=== PATIENT | male | born 1990 | race African-American/Black ===

== ENCOUNTER 2018-11-17 14:38 | Emergency (ER) | payer OTHER ==
[~2018-11-17] VITALS: Ht 190.5 cm; Wt 107.7 kg
[2018-11-17 14:49] VITALS: Ht 190.5 cm; Wt 107.7 kg
[2018-11-17 15:20] LABS: BASOPHILS 0.2 % (0-2); EOSINOPHILS 3.3 % (0-7); HEMATOCRIT 41.4 % (42.0-54.0); HEMOGLOBIN 13.7 g/dL (13.5-17.5); IMMATURE GRANULOCYTES 0.2 % (0-5); LYMPHOCYTES 25.8 % (15-50); MCH 23.8 pg (26.0-34.0); MCHC 33.1 g/dL (31.0-37.0); MEAN PLATELET VOLUME 9.7 fL (7.4-10.4); MONOCYTES 8.8 % (2-11); NEUTROPHILS 61.7 % (40-80); RBC 5.75 10x6/uL (4.20-6.10); RDW 14.5 % (11.5-14.5); WBC 5.4 10x3/uL (4.8-10.8)
[2018-11-17 15:27] LABS: APPEARANCE CLEAR (CLEAR); BILIRUBIN NEGATIVE (NEGATIVE); COLOR YELLOW (YELLOW); GLUCOSE NEGATIVE (NEGATIVE); KETONE NEGATIVE (NEGATIVE); NITRITE NEGATIVE (NEGATIVE); PROTEIN NEGATIVE (NEGATIVE); UROBILINOGEN NORMAL (NORMAL)
[2018-11-17 15:28] LABS: PLATELET COUNT 256 10x3/uL (130-400)
[2018-11-17 15:33] LABS: ALBUMIN 3.9 g/dL (3.4-5.0); ALKALINE PHOSPHATASE 87 U/L (46-116); ALT (SGPT) 53 U/L (10-68); AMYLASE - SERUM 47 U/L (25-115); BILIRUBIN - TOTAL 0.33 mg/dL (0.2-1.3); C-REACTIVE PROTEIN < 0.2 mg/dL (0.0-0.9); CALC OSMOLALITY 278 mosm/kg (275-300); CALCIUM 8.4 mg/dL (8.5-10.1); CARBON DIOXIDE 25.4 mmol/L (21.0-32.0); CHLORIDE - SERUM 104 mmol/L (98-107); CREATININE - SERUM 0.9 mg/dL (0.6-1.3); GLUCOSE 106 mg/dL (74-106); LIPASE 181 U/L (73-393); POTASSIUM - SERUM 3.7 mmol/L (3.5-5.1); PROTEIN - SERUM 7.9 g/dL (6.4-8.2); SODIUM 141 mmol/L (136-145); UREA NITROGEN 6 mg/dL (7-18); eGFR NON AFRICAN AMERICAN > 90 mL/min (90-120)
[2018-11-17] MEDS ORDERED: TORADOL10 MG PO (16:17)
[2018-11-17 16:39] VITALS: BP 125/78
== END 2018-11-17 16:39 | disposition home or self-care (01) ==
LOC: D.ER 14:38
PROVIDERS: Emergency Medicine
DX: R10.32 Left lower quadrant pain (principal); F10.10 Alcohol abuse, uncomplicated; K42.9 Umbilical hernia without obstruction or gangrene

== ENCOUNTER 2020-07-18 00:26 | Emergency (ER) | payer SELFPAY ==
[~2020-07-18] VITALS: Ht 190.5 cm; Wt 94.1 kg
[~2020-07-18 00:26] MED LIST: TORADOL10 MG PO
[2020-07-18 00:29] VITALS: Ht 190.5 cm; Wt 94.1 kg
[2020-07-18] MEDS ORDERED: NAPROSYN500 MG PO (02:08)
[2020-07-18] MEDS ORDERED: KEFLEX500 MG PO (02:08)
[2020-07-18 02:36] VITALS: BP 132/77
== END 2020-07-18 05:28 | disposition home or self-care (01) ==
LOC: D.ER 00:26
DX: S00.81XA Abrasion of other part of head, initial encounter (principal); S01.81XA Laceration without foreign body of other part of head, initial encounter; F10.129 Alcohol abuse with intoxication, unspecified; Y90.9 Presence of alcohol in blood, level not specified; W19.XXXA Unspecified fall, initial encounter; Y93.9 Activity, unspecified; Y92.9 Unspecified place or not applicable; R51.9 Headache, unspecified